=== PATIENT | male | born 1955 | race Caucasian/White ===

== ENCOUNTER 2018-03-12 14:35 | Day surgery (SDC) | payer OTHER ==
[~2018-03-12] VITALS: Ht 182.9 cm; Wt 105.8 kg
[2018-03-12] VITALS (9 sets, daily range): BP systolic 138–164; BP diastolic 72–100
[~2018-03-12 14:35] MED LIST: ATOR20TA66 PO; CARV6.253 PO; FURO40TA4 PO; LOSA25TA41 PO; POTA10TA10 PO
[2018-03-12] MEDS ORDERED: diphenhydrAMINE 25mg capsule PO ONE (15:10)
[2018-03-12] MEDS ORDERED: ceFAZolin 1GM/D5W- ADD-VANTAGE 50 ML IV SCH (15:10)
[2018-03-12] MEDS ORDERED: LORazepam 0.5 MG tablet PO ONE (15:10)
[2018-03-12] MEDS ORDERED: normal saline 1000ml 1,000 ML IV SCH (15:15)
[2018-03-12] MEDS ORDERED: CARV-50 PO (15:22)
[2018-03-12] MEDS ORDERED: LOSA25TA96 PO (15:22)
[2018-03-12] MEDS ORDERED: ASPI-1265 PO (15:22)
[2018-03-12] MEDS ORDERED: ceFAZolin 1GM/D5W- ADD-VANTAGE 50 ML IV ONE (16:18)
[2018-03-12] MEDS ORDERED: fentaNYL/PF 50MCG/1 ML 2ML syringe ONE (16:18)
[2018-03-12] MEDS ORDERED: lidocaine 1%/epinephrine 1:100,000 injection 50ml vial ONE (16:18)
[2018-03-12] MEDS ORDERED: midazolam 2 mg/2 ml injection ONE (16:18)
[2018-03-12] MEDS ORDERED: ceFAZolin 1000mg inj ONE (16:18)
--- NOTE | 2018-03-12 18:25 | NUR ---
Problems reprioritized. Patient report given, questions answered & plan of care reviewed with LAURA KING.
[2018-03-13] MEDS ORDERED: ceFAZolin 1GM/D5W- ADD-VANTAGE 50 ML IV SCH
== END 2018-03-12 19:37 | disposition home or self-care (01) ==
LOC: SSTAY O 14:35
PROVIDERS: ATTEND Internal Medicine Interventional Cardiology
DX: I11.0 Hypertensive heart disease with heart failure (principal); I50.9 Heart failure, unspecified; I47.1 Supraventricular tachycardia; I42.8 Other cardiomyopathies; F10.21 Alcohol dependence, in remission; I49.8 Other specified cardiac arrhythmias; I45.81 Long QT syndrome; Z79.82 Long term (current) use of aspirin; Z95.0 Presence of cardiac pacemaker; Z79.899 Other long term (current) drug therapy; Z80.9 Family history of malignant neoplasm, unspecified; Z81.1 Family history of alcohol abuse and dependence
CPT/HCPCS: 33249; 93005; 99152; 99153; C1722; C1777; J0690; J2250; J3010; J3490; J7030; Q0163; A4620